=== PATIENT | female | born 1990 | race Caucasian/White ===

== ENCOUNTER 2017-06-08 17:20 | Emergency (ER) | payer SELFPAY, OTHER ==
[2017-06-08] MEDS: HYDROCODONE/APAP (5/325) TAB PO (20:57)
== END 2017-06-08 23:45 | disposition home or self-care (01) ==
LOC: E/R 17:20 → FTE 23:45
DX: S09.90XA Unspecified injury of head, initial encounter (principal); S29.9XXA Unspecified injury of thorax, initial encounter; R51 Headache; W01.0XXA Fall on same level from slipping, tripping and stumbling without subsequent striking against object, initial encounter; Y92.031 Bathroom in apartment as the place of occurrence of the external cause
CPT/HCPCS: 70450; 72072; 99284-25